=== PATIENT | female | born 1965 | race Caucasian/White ===

== ENCOUNTER → 2018-12-31 | Outpatient (CLI) | payer OTHER ==
[2018-12-31 11:23] VITALS: BP 143/74; PULSE 69; RESP 18; TEMP 97.3; BMI 37.5
--- NOTE | 2018-12-31 12:11 | P.HPOB ---
History of Present Illness H&P Date: 12/31/18 Chief Complaint: The patient is here for her routine gynecologic exam. This is a 53-year-old with an LMP of 12/08/2018. The patient is status post tubal sterilization. She states her periods have gotten very heavy. They continue to be regular every month. They are typically lasting 7 days with 2 or 3 days of heavy flow typically starting on the 2nd day of the menstrual period. She denies any significant problems with cramping or pain. On the heavy days she can have to change her protection every one or 2 hours. This can be a problem for her at work and has often missed work because of the heavy flow. She occasionally passes clots. Review of Systems The patient has lost 8 pounds over the last year. She denies respiratory, cardiac, or G.I. problems. 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 She has no other history of STDs. History of Any Multi-Drug Resistant Organisms: None Reported Past Surgical History: Section (x2) Additional Past Surgical History / Comment(s): Conization of the cervix in 1988. Past Psychological History: No Psychological Hx Reported Smoking Status: Former smoker Past Alcohol Use History: None Reported Past Drug Use History: None Reported Additional History: She has been since 1987 and has had marital problems over the years. She is not sexually active. 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 - Past Family History Mother Family Medical History: Deep Vein Thrombosis (DVT) Additional Family Medical History / Comment(s): Grandmother had in [place]. Medications and Allergies Home Medications Medication Instructions Recorded Confirmed Type Levothyroxine Sodium [Levo-T] 100 mcg PO DAILY 12/31/18 12/31/18 History amLODIPine [Norvasc] 5 mg PO DAILY 12/31/18 12/31/18 History Allergies Allergy/AdvReac Type Severity Reaction Status Date / Time ciprofloxacin [From Cipro] AdvReac Severe Rash/Hives Unverified 12/31/18 11:16 Exam Vital Signs Temp Pulse Resp BP Pulse Ox 12/31/18 11:19 97.3 F L 69 18 143/74 98 Intake and Output 12/30/18 12/31/18 12/31/18 22:59 06:59 14:59 Other: Weight 108.862 kg Height 5'7", weight 240 pounds, BMI 37.6. This is a well-developed well-nourished heavyset white female who is alert and oriented times 3 in no acute distress. HEENT: Within normal limits. NECK: Supple without mass or thyromegaly. CHEST AND LUNGS: Clear to auscultation. HEART: Regular rate and rhythm. BREASTS: Are without mass or discharge. AXILLARY EXAM: Negative for adenopathy. BACK: Negative for CVA tenderness. ABDOMEN: Soft, nontender, without palpable masses. PELVIC EXAM: Normal external genitalia. Cervix and vagina appear normal. There is no unusual discharge. There is no evidence of prolapse. The uterus is midposition, nongravid size and nontender. There are no palpable adnexal masses or tenderness. RECTAL EXAM: rectovaginal exam is negative for mass or tenderness and is negative for occult blood. EXTREMITIES: Nontender. IMPRESSION: 1. 53-year-old female with menorrhagia. Menses are regular and predictable. Normal gynecologic exam. 2. Previous abnormal Pap smear on 11/20/2017 showing ascus with negative high- risk HPV. PLAN: 1. Pap smear was deferred. She will be due for a Pap smear co-test next year. 2. Self breast awareness was discussed with the patient. 3. I have recommended screening mammogram, but she is refusing this at this time. She states she will reconsider this in one or 2 months. The order slip was given to the patient for this. I have stressed the importance of having this done on a yearly basis, especially because of her denser breast tissue. 4. We have had a long discussion regarding her menorrhagia. We will have a trial of meclofenamate sodium 100 mg TID PRN for heavy menstrual flow up to 6 days per cycle. The electronic prescription will be sent to [facility] pharmacy in [place]. If she does not notice significant improvement in 2 to 3 months, she was instructed to call and we will consider a referral for an endometrial ablation. 5. She will return in one year and PRN.
== END ==
LOC: WWCWWP 11:06
PROVIDERS: ATTEND Obstetrics & Gynecology
DX: Z53.9 Procedure and treatment not carried out, unspecified reason (principal)

== ENCOUNTER → 2020-02-11 | Outpatient (CLI) | payer OTHER ==
[2020-02-11 10:24] VITALS: BP 118/77; PULSE 71; RESP 18; TEMP 98.3
--- NOTE | 2020-02-11 11:11 | P.HPOB ---
History of Present Illness H&P Date: 02/11/20 Chief Complaint: The patient is here for her routine gynecologic exam and ma mmogram. This is a 54-year-old with an LMP of 01/21/2020. The patient states her menstrual periods are less heavy with meclofenamate sodium. She still has one day that is fairly heavy. Menses have been regular every month but did have 1 month this year that she had 2 menstrual periods. She denies any significant hot flashes. She is without gynecologic complaints. Review of Systems The patient's weight has been stable over the last year. She denies respiratory, cardiac, or G.I. problems. Past Medical History Past Medical History: Hypertension, Thyroid Disorder Additional Past Medical History / Comment(s): Hypothyroidism. 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 She has no other history of STDs. History of Any Multi-Drug Resistant Organisms: None Reported Past Surgical History: Section Additional Past Surgical History / Comment(s): Conization of the cervix in 1988. Colonoscopy with polyp removed 2018(next after 3yrs). Past Psychological History: No Psychological Hx Reported Smoking Status: Former smoker Past Alcohol Use History: None Reported Additional Past Alcohol Use History / Comment(s): Quit smoking in her 20s. Past Drug Use History: None Reported Additional History: She has been since 1987 and has had marital problems related to her 's excessive alcohol use. 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 - Past Family History Mother Family Medical History: Deep Vein Thrombosis (DVT) Additional Family Medical History / Comment(s): Grandmother had in [place]. Father Family Medical History: Diabetes Mellitus Medications and Allergies Home Medications Medication Instructions Recorded Confirmed Type amLODIPine [Norvasc] 10 mg PO DAILY 12/31/18 02/11/20 History Meclofenamate Sodium 100 mg PO TID PRN #30 capsule 01/22/19 02/11/20 Rx Levothyroxine Sodium [Synthroid] 100 mcg PO DAILY 02/11/20 02/11/20 History Lisinopril [Zestril] 10 mg PO DAILY 02/11/20 02/11/20 History Allergies Allergy/AdvReac Type Severity Reaction Status Date / Time ciprofloxacin [From Cipro] AdvReac Severe Rash/Hives Unverified 02/11/20 10:24 Exam Vital Signs Temp Pulse Resp BP Pulse Ox 02/11/20 10:22 98.3 F 71 18 118/77 97 Intake and Output 02/10/20 02/11/20 02/11/20 22:59 06:59 14:59 Other: Weight 109.769 kg Height 5 feet 7 inches, weight 242 pounds, BMI 37.9. This is a well-developed well-nourished white female who is alert and oriented times 3 in no acute distress. HEENT: Within normal limits. NECK: Supple without mass or thyromegaly. CHEST AND LUNGS: Clear to auscultation. HEART: Regular rate and rhythm. BREASTS: Are without mass or discharge. AXILLARY EXAM: Negative for adenopathy. BACK: Negative for CVA tenderness. ABDOMEN: Soft, nontender, without palpable masses. PELVIC EXAM: Normal external genitalia. Cervix and vagina appear normal. There is no unusual discharge. There is no evidence of prolapse. The uterus is midposition, nongravid size and nontender. There are no palpable adnexal masses or tenderness. RECTAL EXAM: Rectovaginal exam is negative for mass or tenderness and is negative for occult blood. EXTREMITIES: Nontender. IMPRESSION: 1. 54-year-old premenopausal female with history of menorrhagia improved with meclofenamate sodium. 2. Previous tubal ligation. 3. Previous ASCUS Pap smear with negative high-risk HPV testing on 01/15/2018. PLAN: 1. Pap smear was performed with high-risk HPV testing. 2. Self breast awareness was discussed with the patient. 3. Screening mammogram will be done today. 4. Osteoporosis prevention was discussed. I have stressed the importance of adequate calcium, vitamin D and regular exercise. Recommended amounts of calcium and vitamin D were also discussed. 5. The patient will keep a menstrual calendar. She will call if menstrual problems. We also discussed the option of endometrial ablation, but she feels that meclofenamate sodium is helping at this time. The electronic prescription for the meclofenamate sodium will be sent to [facility] mail order [facility]. 6. She was advised to return in one year for her annual well woman exam.
--- NOTE | 2020-02-11 12:02 | MM ---
Reason for exam: screening (asymptomatic). Last mammogram was performed 2 years and 3 months ago. Physical Findings: A clinical breast exam by your physician is recommended on an annual basis and results should be correlated with mammographic findings. MG 3D Screening Mammo W/Cad Bilateral CC and MLO view(s) were taken. Prior study comparison: November 20, 2017, bilateral MG 3d screening mammo w/cad. November 09, 2015, bilateral MG 3d work up w/cad JEANETTE. The breast tissue is heterogeneously dense. This may lower the sensitivity of mammography. There is a 5mm right upper outer quadrant middle depth mass 8-9cm from nipple. No suspicious abnormality in the left breast. ASSESSMENT: Incomplete: need additional imaging evaluation, BI-RAD 0 RECOMMENDATION: Special view mammogram of the right breast. If lesion persists on supplemental views, image directed ultrasound is recommended. [facility] will attempt to contact patient to return for supplemental views and ultrasound if indicated.
== END | disposition home or self-care (01) ==
LOC: WWCWWP 09:52
PROVIDERS: ATTEND Obstetrics & Gynecology
DX: Z12.31 Encounter for screening mammogram for malignant neoplasm of breast (principal)
CPT/HCPCS: 77063; 77067

== ENCOUNTER → 2020-02-17 | Outpatient (CLI) | payer OTHER ==
--- NOTE | 2020-02-17 11:13 | MM ---
Reason for exam: additional evaluation requested from abnormal screening. Last mammogram was performed less than 1 month ago. Physical Findings: Nurse did not find any significant physical abnormalities on exam. MG 3D Work Up W/Cad RT Spot compression CC, spot compression MLO, and ML view(s) were taken of the right breast. Prior study comparison: February 11, 2020, bilateral MG 3d screening mammo w/cad. November 20, 2017, bilateral MG 3d screening mammo w/cad. The breast tissue is heterogeneously dense. This may lower the sensitivity of mammography. No distinct lesion persists on additional views. No significant change from 2017. These results were verbally communicated with the patient and result sheet given to the patient on 02/17/20. ASSESSMENT: Negative, BI-RAD 1 RECOMMENDATION: Return to routine screening mammogram schedule for both breasts.
== END | disposition home or self-care (01) ==
LOC: RADMAMWWP 10:06
PROVIDERS: ATTEND Obstetrics & Gynecology
DX: R92.8 Other abnormal and inconclusive findings on diagnostic imaging of breast (principal)
CPT/HCPCS: 77061; 77065

== ENCOUNTER → 2021-08-02 | Outpatient (CLI) | payer OTHER ==
[2021-08-02 10:50] VITALS: BP 134/81; PULSE 80; RESP 16; TEMP 98.4
--- NOTE | 2021-08-02 11:43 | P.HPOB ---
History of Present Illness H&P Date: 08/02/21 Chief Complaint: The patient is here for her routine gynecologic exam. This is a 55-year-old with an LMP of 07/26/2021. The patient is status post tubal ligation. She states her menstrual periods were regular up until about February of this year. She had no menstrual periods between February and May. She had a period in May that lasted 2 weeks. Since then her menstrual periods have been somewhat irregular and more frequent than usual. She had a day of heavy flow 4 days ago. She has run out of her meclofenamate sodium which she has used intermittently for heavy menstrual periods she does seem to feel warm most of the time and this is not a very new for her. She has had some moodiness. Review of Systems The patient's weight has been stable over the last year. She denies respiratory, cardiac, or G.I. problems. Past Medical History Past Medical History: Hypertension, Thyroid Disorder Additional Past Medical History / Comment(s): Hypothyroidism. 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 She has no other history of STDs. History of Any Multi-Drug Resistant Organisms: None Reported Past Surgical History: Section Additional Past Surgical History / Comment(s): section 2. 2 vaginal deliveries. Conization of the cervix in 1988. Colonoscopy with polyp removed 2018(next after 3yrs). Past Psychological History: No Psychological Hx Reported Smoking Status: Former smoker Past Alcohol Use History: None Reported Additional Past Alcohol Use History / Comment(s): Quit smoking in her 20s. Past Drug Use History: None Reported Additional History: She has been since 1987 and has had marital problems related to her 's excessive alcohol use. 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 - Past Family History Mother Family Medical History: Deep Vein Thrombosis (DVT) Additional Family Medical History / Comment(s): Grandmother had in [place]. Father Family Medical History: Diabetes Mellitus Medications and Allergies Home Medications Medication Instructions Recorded Confirmed Type amLODIPine [Norvasc] 10 mg PO DAILY 12/31/18 08/02/21 History Levothyroxine Sodium [Synthroid] 100 mcg PO DAILY 02/11/20 08/02/21 History Meclofenamate Sodium 100 mg PO TID PRN #30 capsule 02/11/20 08/02/21 Rx lisinopriL [Zestril] 10 mg PO DAILY 02/11/20 08/02/21 History Allergies Allergy/AdvReac Type Severity Reaction Status Date / Time ciprofloxacin [From Cipro] AdvReac Severe Rash/Hives Unverified 08/02/21 10:44 Exam Vital Signs Temp Pulse Resp BP Pulse Ox 08/02/21 10:44 98.4 F 80 16 134/81 99 Intake and Output 08/01/21 08/02/21 08/02/21 22:59 06:59 14:59 Other: Weight 110.677 kg Height 5 feet 6 inches, weight 244 pounds, BMI 39.4. This is a well-developed well-nourished white female who is alert and oriented times 3 in no acute distress. HEENT: Within normal limits. NECK: Supple without mass or thyromegaly. CHEST AND LUNGS: Clear to auscultation. HEART: Regular rate and rhythm. BREASTS: Are without mass or discharge. AXILLARY EXAM: Negative for adenopathy. BACK: Negative for CVA tenderness. ABDOMEN: Soft, nontender, without palpable masses. PELVIC EXAM: Normal external genitalia. Cervix and vagina appear normal with some menstrual blood in the back of the vagina. There is no unusual discharge. There is no evidence of prolapse. The uterus is midposition, nongravid size and nontender. There are no palpable adnexal masses or tenderness. RECTAL EXAM: Rectovaginal exam is negative for mass or tenderness. Fecal occult blood testing was not performed since there is menstrual blood in the area of the anus. EXTREMITIES: Nontender. IMPRESSION: 1. 55-year-old premenopausal female with a recent dysfunctional uterine bleeding after 3 months of amenorrhea. 2. Normal gynecologic exam in a female who is status post tubal ligation. 3. History of hypermenorrhea which was improved with meclofenamate sodium. PLAN: 1. Pap smear was deferred since she had a normal Pap smear cotest on 02/11/2020. This was following an ASCUS Pap smear with negative high-risk HPV testing in 2017. We will plan on repeating the Pap smear in 1-2 years. 2. Self breast awareness was discussed with the patient. We have also discussed symptoms associated with inflammatory breast cancer. 3. Screening mammogram was recommended, however the patient is declining the mammogram at this time. Last year she did require a right breast workup following an incomplete screening mammogram. She states she is concerned about the amount of radiation that she receives with mammography. We have discussed how the slight risk of radiation involved with mammography is greatly outweighed by the benefits of screening mammography. She will let me know if she changes her mind. 4. The patient will keep a menstrual calendar. If she continues to have dysfunctional bleeding the on the next month, or if very heavy bleeding or problems, she was instructed to call. We will then considered doing an endometrial biopsy for further evaluation. The handout on endometrial biopsy was given to the patient. 5. Meclofenamate sodium 100 mg by mouth 3 times a day when necessary for heavy menstrual flow up to 6 days per cycle. Her chart prescription will be sent to [facility] pharmacy. 6.Osteoporosis prevention was discussed. I have stressed the importance of adequate calcium, vitamin D and regular exercise. Recommended amounts of calcium and vitamin D were also discussed. 7. She was advised to return in one year for her annual well woman exam and as needed.
== END ==
LOC: WWCWWP 10:32
PROVIDERS: ATTEND Obstetrics & Gynecology
DX: Z01.419 Encounter for gynecological examination (general) (routine) without abnormal findings (principal); N93.9 Abnormal uterine and vaginal bleeding, unspecified; I10 Essential (primary) hypertension; E03.9 Hypothyroidism, unspecified; Z87.891 Personal history of nicotine dependence; Z88.1 Allergy status to other antibiotic agents; Z79.899 Other long term (current) drug therapy; Z87.42 Personal history of other diseases of the female genital tract; Z98.51 Tubal ligation status

== ENCOUNTER → 2023-02-28 | Outpatient (CLI) | payer OTHER ==
[2023-02-28 10:43] VITALS: BP 134/87; PULSE 100; RESP 17; TEMP 98.3
--- NOTE | 2023-02-28 12:08 | P.HPOB ---
History of Present Illness H&P Date: 02/28/23 Chief Complaint: The patient is here for her routine gynecologic exam. This is a 57-year-old with an LMP of 02/16/2023. The patient is status post tubal ligation. Menstrual periods were spacing out and were every 1-2 months for most of the year in 2021. She had a menstrual period in July 2022 and then again in December 2022. Her LMP starting on 02/16/2023 was there any heavy for 4 days where she soaks through her protection and had to get up about 4 times during the night because she soaks through her protection and had to use towels. Her PCP did a CBC showing a hemoglobin of 8.7. She was started on ferrous sulfate daily. Pelvic ultrasound showed a left ovarian cyst measuring 2.4 cm and was otherwise unremarkable. Endometrial thickness was 8 mm. She denies significant hot flashes. Review of Systems She has lost about 11 pounds over the past year. Respiratory she can get slightly short of breath with exertion. She denies cardiac or GI problems. Past Medical History Past Medical History: Hypertension, Thyroid Disorder Additional Past Medical History / Comment(s): Hypothyroidism. 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 She has no other history of STDs. History of Any Multi-Drug Resistant Organisms: None Reported Past Surgical History: Section Additional Past Surgical History / Comment(s): section 2. 2 vaginal deliveries. Conization in the past. of the cervix in 1988. Colonoscopy with polyp removed 2018(next after 3yrs). Past Psychological History: No Psychological Hx Reported Smoking Status: Former smoker Past Alcohol Use History: None Reported Additional Past Alcohol Use History / Comment(s): Quit smoking in her 20s. Past Drug Use History: None Reported Additional History: She has been since 1987, but they are not sexually active. Her has a history of excessive alcohol use. 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 - Past Family History Mother Family Medical History: Deep Vein Thrombosis (DVT) Additional Family Medical History / Comment(s): Grandmother had in [place]. Father Family Medical History: Diabetes Mellitus Medications and Allergies Home Medications Medication Instructions Recorded Confirmed Type amLODIPine [Norvasc] 5 mg PO DAILY 12/31/18 02/28/23 History lisinopriL [Zestril] 10 mg PO DAILY 02/11/20 02/28/23 History Iron 18 mg PO DAILY 02/28/23 02/28/23 History Thyroid,Pork [[place] Thyroid] 60 mg PO DAILY 02/28/23 02/28/23 History Allergies Allergy/AdvReac Type Severity Reaction Status Date / Time ciprofloxacin [From Cipro] AdvReac Severe Rash/Hives Unverified 02/28/23 10:36 Exam Vital Signs Temp Pulse Resp BP Pulse Ox 02/28/23 10:40 98.3 F 100 17 134/87 97 Intake and Output 02/27/23 02/28/23 02/28/23 22:59 06:59 14:59 Other: Weight 105.687 kg Height 5 feet 7 inches, weight 233 pounds, BMI 36.5. This is a well-developed well-nourished white female who is alert and oriented times 3 in no acute distress. HEENT: Within normal limits. NECK: Supple without mass or thyromegaly. CHEST AND LUNGS: Clear to auscultation. HEART: Regular rate and rhythm. BREASTS: Are without mass or discharge. AXILLARY EXAM: Negative for adenopathy. BACK: Negative for CVA tenderness. ABDOMEN: Soft, nontender, without palpable masses. PELVIC EXAM: Normal external genitalia. Cervix and vagina appear normal. There is no unusual discharge. There is no evidence of prolapse. The uterus is midposition, nongravid size and nontender. There are no palpable adnexal masses or tenderness. RECTAL EXAM: Rectovaginal exam is negative for mass or tenderness and is negative for occult blood. EXTREMITIES: Nontender. IMPRESSION: 1. 57-year-old perimenopausal female who is status post tubal ligation with recent oligomenorrhea and hypermenorrhea. 2. Her LMP was very heavy which probably has caused anemia. Her hemoglobin was 8.7 on 02/23/2023. 3. History of ASCUS Pap smear with negative high-risk HPV testing in 2017. Pap smear cotest on 02/11/2020 was negative. PLAN: 1. Pap smear cotest was performed. 2. Screening mammogram was recommended, but the patient is declining mammogram at this time. She states her friend recently from breast cancer and this is making her not want to have mammograms. We have discussed how I feel that mammograms are even more important when there is concern for breast cancer and how it is important to pickup breast cancer earlier to improve outcomes. She still is declining mammogram and I have asked her to call if she changes her mind about this. 3. We have discussed options regarding her hypermenorrhea. I recommended endometrial biopsy. If this is benign, we can consider cyclic progestin therapy or endometrial ablation. Endometrial biopsy will be scheduled for 1 week from today. She will continue to take ferrous sulfate daily as suggested by her PCP. 4. I will try to obtain the FSH done by the PCP. The patient was told that her blood tests indicates she is not postmenopausal. 5. She will return for the endometrial biopsy as above.
--- NOTE | 2023-02-28 14:02 | P.PN ---
Progress Note - Text Progress Note Date: 02/28/23 I have obtained recent blood work done on 02/22/2023 as ordered by Felicia Cope NP. She had a normal prolactin and normal TSH. Total estrogen was 48 which is consistent with the perimenopause. Progesterone was less than 0.1.
== END ==
LOC: WWCWWP 10:29
PROVIDERS: ATTEND Obstetrics & Gynecology
DX: N95.8 Other specified menopausal and perimenopausal disorders (principal); I10 Essential (primary) hypertension; N83.202 Unspecified ovarian cyst, left side; Z83.3 Family history of diabetes mellitus; E03.9 Hypothyroidism, unspecified; Z98.51 Tubal ligation status; N91.5 Oligomenorrhea, unspecified; Z87.891 Personal history of nicotine dependence; N92.0 Excessive and frequent menstruation with regular cycle; Z88.1 Allergy status to other antibiotic agents; D62 Acute posthemorrhagic anemia; R87.610 Atypical squamous cells of undetermined significance on cytologic smear of cervix (ASC-US)

== ENCOUNTER → 2023-03-07 | Day surgery (SDC) | payer OTHER ==
[2023-03-07 09:34] VITALS: TEMP 98.5
[2023-03-07 10:06] VITALS: BP 122/80; PULSE 76; RESP 16
--- NOTE | 2023-03-07 10:11 | P.PCN ---
Date of Procedure: 03/07/23 Preoperative Diagnosis: Menorrhagia with irregular cycles. Postoperative Diagnosis: Menorrhagia with irregular cycles. Procedure(s) Performed: Endometrial biopsy Anesthesia: none Surgeon: Serjio Browne Estimated Blood Loss (ml): 0 Pathology: other (Endometrial tissue) Condition: stable Disposition: same day Indications for Procedure: This was a 57-year-old with an LMP of 02/16/2023. The patient is status post tubal ligation. Menstrual periods have been spacing out and she did not have a period between her July 2022 menstrual period and December 2022. Her LMP was extremely heavy for 4 days and she soaked through her protection and had to get up about 4 times during the night because she was soaking through protection and has to use towels. Her hemoglobin was 8.7 and was started on iron supplementation. Operative Findings: The uterus is multiparous and sounded to 10 cm. Moderate amount of tissue was obtained. Description of Procedure: Preprocedure vitals: Blood pressure 144/74, height 5 feet 7 inches, weight 234 pounds, temp 98.5, pulse 75, pulse ox 100%. The procedure was discussed in detail. We have discussed possible risks and complications including bleeding, infection, and uterine perforation. We have also discussed possible options that could be available depending on the pathology results. All questions were answered. The patient was placed in the lithotomy position and bimanual examination was performed. Uterus was mid position, multiparous, nongravid size, and nontender. There are no palpable adnexal masses or tenderness. A speculum was inserted into the vagina and the cervix and vagina were prepped with Betadine solution. A 3 mm endometrial biopsy instrument was inserted through the cervix without difficulty. The uterus sounded to 10 cm. Negative pressure was applied. A [id number], rotating motion was used and the endometrial biopsy instrument was filled with endometrial tissue. The procedure was performed one more time and again moderate tissue was obtained. The patient tolerated the procedure well. The instruments were removed. Estimated blood loss was 0 mL. There were no complications. Postprocedure blood pressure: 122/80, pulse 76, pulse oximeter 100%. The patient was discharged home in stable condition. The patient was instructed to call if she has any problems such as heavy bleeding, unusual pain, fever, or problems.
--- NOTE | 2023-03-13 13:15 | P.PN ---
Progress Note - Text Progress Note Date: 03/13/23 OUTPATIENT FOLLOW-UP NOTE TEST(S)/RESULTS: Endometrial biopsy results from 03/07/2023 showed disordered proliferative endometrium without atypia. METHOD OF NOTIFICATION: Patient was notified by phone. PATIENT COMMENTS: The patient is interested in having an endometrial ablation for her heavy periods. DIAGNOSIS: Menorrhagia with benign disordered endometrium. DISCUSSION: We have discussed options including cyclic progestin treatment as well as endometrial ablation. The patient would like to proceed with endometrial ablation. PLAN: She will be referred to Dr. Majano, who she has seen in the past. This will be for evaluation and possible endometrial ablation.
== END ==
LOC: WWCWWP 09:12
PROVIDERS: ATTEND Obstetrics & Gynecology
DX: N85.8 Other specified noninflammatory disorders of uterus (principal); D64.9 Anemia, unspecified; Z98.51 Tubal ligation status
CPT/HCPCS: 88305

== ENCOUNTER → 2023-03-29 | Outpatient (CLI) | payer OTHER ==
[2023-03-29 15:19] LABS: Basophils # (A) 0.04 X 10*3/uL (0.00-0.10); Basophils % (A) 0.5 %; Eosinophils % (A) 1.3 %; HCT 31.8 % (37.2-46.3); HGB 9.5 g/dL (12.0-15.0); Immature Grans, Automated 0.3 %; Lymphocytes % (A) 25.9 %; MCH 25.2 pg (27.0-32.0); MCHC 29.9 g/dL (32.0-37.0); MCV 84.4 fL (80.0-97.0); Monocytes # (A) 0.61 X 10*3/uL (0.20-1.00); Monocytes % (A) 7.9 %; NRBC Per 100 WBC 0 /100 WBCS (0.0-0.0); Neutrophils # (A) 4.95 X 10*3/uL (1.80-7.70); Neutrophils % (A) 64.1 %; Platelet Count 348 X 10*3/uL (140-440); RBC 3.77 X 10*6/uL (4.10-5.20); RDW 13.9 % (11.5-14.5); WBC 7.72 X 10*3/uL (4.50-10.00)
== END | disposition home or self-care (01) ==
LOC: LABPAT 10:12
PROVIDERS: ATTEND Obstetrics & Gynecology
DX: Z01.818 Encounter for other preprocedural examination (principal); I10 Essential (primary) hypertension; N92.0 Excessive and frequent menstruation with regular cycle; D64.9 Anemia, unspecified
CPT/HCPCS: 85025; 93005

== ENCOUNTER 2023-04-27 08:40 | Day surgery (SDC) | payer OTHER ==
[2023-04-26 08:27] VITALS: BMI 34.4
[~2023-04-27 08:40] MED LIST: LACTATED RINGERS 1,000 ML IV SCH; Pre Op ABX Message 1 EACH MISC MISCELLANE ONE
[2023-04-27] MEDS ORDERED: LACTATED RINGERS 1,000 ML IV ONE (09:08)
[2023-04-27] MEDS ORDERED: ONDANSETRON 4 MG/2 ML VIAL ONE (09:42)
[2023-04-27] MEDS ORDERED: DEXAMETHASONE SOD PHOSPHATE 4 MG/ML 1 ML VIAL IVP ONE (09:44)
[2023-04-27] MEDS ORDERED: fentaNYL (PF) 50 MCG/ML 2 ML AMP ONE (10:14)
[2023-04-27] MEDS ORDERED: LIDOCAINE 2% INJ 20 MG/ML (2 ML VIAL) ONE (10:14)
[2023-04-27] MEDS ORDERED: KETOROLAC 15 MG/ML 1 ML VIAL ONE (10:14)
[2023-04-27] MEDS ORDERED: PROPOFOL 10 MG/ML 20 ML VIAL IV ONE (10:14)
--- NOTE | 2023-04-27 10:49 | P.OP ---
Date of Procedure: 04/27/23 Preoperative Diagnosis: Menorrhagia with subsequent anemia Postoperative Diagnosis: Same, essentially normal-appearing endometrial cavity. 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 Procedure(s) Performed: Hysteroscopy, NovaSure endometrial ablation Anesthesia: ALCON Surgeon: Maddie Majano Estimated Blood Loss (ml): 5 IV fluids (ml): 100 Urine output (ml): 100 Pathology: none sent Condition: stable Disposition: PACU Operative Findings: Essentially normal appearing endometrial cavity. 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 Description of Procedure: Patient is brought to the operating suite where a general anesthetic is administered without difficulty. She's placed in the dorsal lithotomy position. The cervix, vagina, perineal bodies are all prepped and draped in the usual sterile fashion. The appropriate timeout is performed to assure proper patient and procedural identification. Bladder is drained for approximately 100 mL of clear yellow urine. Weighted speculum was placed into the vagina after an examination under anesthesia is performed in within normal limits. Anterior lip of the cervix is grasped with a double-tooth tenaculum. Cervix is noted to have bright red blood on the external os. Uterus sounds to a depth of 8 cm in the anteverted position. The cervix is dilated with little resistance. The hysteroscope was placed and fluid is infused. The cavity is distended and inspected, shaggy-appearing proliferative-type endometrial tissue is noted. No polyps, no fibroids, no septa, no defects. Hysteroscope was removed. The NovaSure wand is then seated. A uterine length of 6.0 cm, width of 4.2 cm is chosen. Machine is properly calibrated and enabled. For 47 seconds and a power 139 W the procedure is carried out. When completed the wand is removed. Hysteroscope was once again placed, cavity appears uniformly and thoroughly blanched. All instrumentation is removed from the vagina. All sponge needle and instrument counts are correct. Toradol is given. Patient is brought back to the recovery room in stable condition with a blood pressure of 102/61, pulse 48, 98% O2 saturation. She will follow-up with me in the office in 2 weeks.
[2023-04-27 10:52] VITALS: TEMP 97.4
[2023-04-27 11:50] VITALS: BP 151/88; PULSE 55; RESP 16
== END 2023-04-27 12:25 | disposition home or self-care (01) ==
LOC: OR 08:40
PROVIDERS: ATTEND Obstetrics & Gynecology
DX: N92.0 Excessive and frequent menstruation with regular cycle (principal); N81.6 Rectocele; I10 Essential (primary) hypertension; E03.9 Hypothyroidism, unspecified; Z87.891 Personal history of nicotine dependence; Z79.890 Hormone replacement therapy; Z79.899 Other long term (current) drug therapy; Z88.1 Allergy status to other antibiotic agents
CPT/HCPCS: 81025; 58563; J1100; J2405; J3010; J1885; J2704; J2001